=== PATIENT | male | born 1985 ===

== ENCOUNTER 2023-02-05 09:00 | Outpatient (RCR) | payer OTHER | END 2023-02-11 | disposition home or self-care (01) | LOC: MKS.ESL.PT | DX: R42 Dizziness and giddiness (principal) ==

== ENCOUNTER 2023-06-06 08:30 | Outpatient (RCR) | payer OTHER | END 2023-06-14 | disposition home or self-care (01) | LOC: MKS.ESL.PT | DX: M25.512 Pain in left shoulder (principal); S49.92XD Unspecified injury of left shoulder and upper arm, subsequent encounter; X58.XXXD Exposure to other specified factors, subsequent encounter ==

== ENCOUNTER 2023-06-20 08:11 | Outpatient (RCR) | payer OTHER | END 2023-07-14 | disposition home or self-care (01) | LOC: MKS.ESL.PT | DX: S49.92XD Unspecified injury of left shoulder and upper arm, subsequent encounter (principal) ==

== ENCOUNTER → 2023-07-23 13:57 | Outpatient (RCR) | payer OTHER | LOC: MKS.ESL.PT 07-15 08:00 | DX: S49.92XD Unspecified injury of left shoulder and upper arm, subsequent encounter (principal); X58.XXXD Exposure to other specified factors, subsequent encounter ==